=== PATIENT | female | born 1960 | race Caucasian/White ===

== ENCOUNTER → 2020-03-31 10:05 | Outpatient (CLI) | payer BC, SELFPAY ==
--- NOTE | ~2020-03-31 | DEXA_ITS ---
Bone Density Report Name: Sherri Mcnulty Age: 59 Sex: Female Ethnicity: White Date of : 1960 Indication: osteopenia; hysterectomy; postmenopausal Referring Provider: ALEJANDRO BARNES Study: Bone densitometry was performed. Exam Date: March 31, 2020 Accession number: [id number] Bone Density: Region BMD T-score Z-score Classification AP Spine (L1-L4) 1.056 0.1 1.5 Normal Femoral Neck (Left) 0.803 -0.4 0.9 Normal Total Hip (Left) 1.026 0.7 1.6 Normal Femoral Neck (Right) 0.762 -0.8 0.5 Normal Total Hip (Right) 0.987 0.4 1.3 Normal Total Hip Mean 1.007 0.6 1.5 Normal World Health Organization criteria for BMD impression classify patients as: Normal (T-score at or above -1.0), Osteopenia (T-score between -1.0 and -2.5), or Osteoporosis (T-score at or below -2.5). 10-year Fracture Risk: FRAX not reported because: All T-scores for Spine Total, Hip Total, Femoral Neck at or above -1.0 Previous Exams: Region Exam Age BMD T-score BMD Change BMD Change Date g/cm2 vs Baseline vs Previous AP Spine(L1-L4) 03/31/2020 59 1.056 0.1 -0.031 0.062* 01/18/2017 56 0.993 -0.5 -0.093 -0.032* 05/09/2013 53 1.026 -0.2 -0.061 0.058* 07/15/2009 49 0.968 -0.7 -0.119 -0.119 12/29/2003 43 1.087 0.4 Total Hip(Left) 03/31/2020 59 1.026 0.7 0.043 0.125* 01/18/2017 56 0.901 -0.3 -0.082 -0.043* 05/09/2013 53 0.944 0.0 -0.038 0.041* 07/15/2009 49 0.903 -0.3 -0.080 -0.080 12/29/2003 43 0.982 0.3 Total Hip(Right) 03/31/2020 59 0.987 0.4 0.005 0.175* 01/18/2017 56 0.811 -1.1 -0.170 -0.122* 05/09/2013 53 0.934 -0.1 -0.048 0.090* 07/15/2009 49 0.844 -0.8 -0.138 -0.138 12/29/2003 43 0.981 0.3 *Denotes significance at 95% confidence level, LSC for AP Spine = 0.022 g/cm2, LSC for Total Hip = 0.027 g/cm2 Clinical Information Provided by Patient: Has used the following medications: HRT (i.e. estrogen/hormone therapy), Vitamin D, Calcium Has the following medical conditions: Hysterectomy Patient maximum height was 65.5 Menopause Age: 42 No regular weight bearing exercise Drinks caffeinated beverages Onset of menses at age 14 Number of children 2 Impression: The patient has n
--- NOTE | ~2020-03-31 | MM_ITS ---
EXAMINATION: MM screening sonia BI w jasson HISTORY: Screening mammogram TECHNIQUE: Craniocaudal and mediolateral oblique 3-D tomosynthesis images were obtained and synthetic 2-D images were generated. CAD analysis was submitted and interpreted. COMPARISON: 01/18/2017, 11/27/2015, 07/03/2014, 05/09/2013 bilateral digital screening mammogram examina tions BREAST PARENCHYMAL COMPOSITION: The breasts are heterogeneously dense, which may obscure small masses . FINDINGS: There is no evidence of suspicious mass, calcification, or architectural distortion to sugg est malignancy in either breast. There has been no suspicious interval change. IMPRESSION: 1. No mammographic evidence of malignancy. 2. Recommend routine screening mammography in one year. BI-RADS Category 1: Negative Reviewed, dictated and finalized at location A. OPERATOR
== END ==
PROVIDERS: PCP Family Medicine Adolescent Medicine; Referring Provider Obstetrics & Gynecology; Visit Provider Obstetrics & Gynecology Gynecology
DX: Z12.31 Encounter for screening mammogram for malignant neoplasm of breast (principal); Z78.0 Asymptomatic menopausal state
CPT/HCPCS: 77063; 77067; 77080

== ENCOUNTER → 2021-07-08 14:42 | Outpatient (CLI) | payer BC, SELFPAY ==
--- NOTE | ~2021-07-08 | XR_ITS ---
EXAMINATION: XR finger 5th RT min 2V DATE: 07/08/2021 15:01 INDICATION: Right hand fifth digit injury. TECHNIQUE: 4 views of right hand fifth digit were obtained. COMPARISON: None. FINDINGS: Bone alignment is normal. 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 There is lucency at the base of a large osteophyte at the dorsal base of the fifth distal phalanx. IMPRESSION: 1. Lucency at the base of a large osteophyte at the dorsal base of the fifth distal phalanx, which is indeterminate for a fracture. Reviewed, dictated and finalized at location A. IMPRESSION: 1. Lucency at the base of a large osteophyte at the dorsal base of the fifth di stal phalanx, which is indeterminate for a fracture.
== END ==
PROVIDERS: PCP Family Medicine Adolescent Medicine; Visit Provider Family Medicine Adolescent Medicine
DX: S67.196A Crushing injury of right little finger, initial encounter (principal); X58.XXXA Exposure to other specified factors, initial encounter
CPT/HCPCS: 73140

== ENCOUNTER → 2021-09-28 15:16 | Outpatient (CLI) | payer BC, SELFPAY ==
--- NOTE | ~2021-09-28 | MM_ITS ---
EXAMINATION: MM screening sonia BI w jasson HISTORY: Screening mammogram TECHNIQUE: Craniocaudal and mediolateral oblique 3-D tomosynthesis images were obtained and synthetic 2-D images were generated. CAD analysis was submitted and interpreted. COMPARISON: 03/31/2020, 01/18/2017, 11/27/2015 bilateral screening mammogram examinations BREAST PARENCHYMAL COMPOSITION: The breasts are heterogeneously dense, which may obscure small masses . FINDINGS: There is no evidence of suspicious mass, calcification, or architectural distortion to sugg est malignancy in either breast. There has been no suspicious interval change. IMPRESSION: 1. No mammographic evidence of malignancy. 2. Recommend routine screening mammography in one year. BI-RADS Category 1: Negative Reviewed, dictated and finalized at location A.
== END ==
PROVIDERS: PCP Family Medicine Adolescent Medicine; Visit Provider Obstetrics & Gynecology Gynecology
DX: Z12.31 Encounter for screening mammogram for malignant neoplasm of breast (principal)
CPT/HCPCS: 77063; 77067

== ENCOUNTER 2021-10-26 00:09 | Day surgery (SDC) | payer BC, SELFPAY ==
[2021-10-07 15:07] VITALS: BMI 26.7
[2021-10-26 07:57] VITALS: BP 116/70; PULSE 77; RESP 16; TEMP 36.5; O2SAT 100
[2021-10-26] MEDS: LACTATED RINGERS 1,000 ML 150 ML IV CONT (08:05)
--- NOTE | 2021-10-26 08:30 | PM.IMHP ---
H&P: HPI History of Present Illness Date/Time: 10/26/21 08:30 Chief Complaint: History of colon polyps. Narrative: This is a 61-year-old white female patient presents for surveillance colonoscopy. Patient has a history of colon polyps performed by Dr. Nas Glover in 2017. At that time 2 sessile hyperplastic polyps were removed with snare cautery. One which had bleeding required clipping. Patient presents today for follow-up examination. She states her weight appetite her bowel movements are normal. In preparation for colonoscopy she reports brief episode of anal prolapse. She has never had this occur previously. She denies any bleeding. Has no pain. She states the prolapse promptly resolved. Review of Systems Review of Systems: Review of systems is noncontributory. [facility] Past Medical History Medical History Abnormal colonoscopy 11/24, polyps Repeat 11/29 Surgical History Surgical History H/O hysterectomy with oophorectomy 1999 Family History Family History Father Hypertension Heart disease CHF Mother Cerebrovascular accident Sibling Ovarian cancer Sibling Acute myocardial infarction Social History Social History Social History: never smoker Smoking status: Never smoker Second hand tobacco smoke exposure: No Alcohol intake: current Alcohol use details: Socially Substance use: never Substance use type: does not use Living arrangements: with family Gender identity (if verbalized by the patient): Female Sexual Orientation (if Verbalized by the Patient): Straight or Heterosexual Spiritual care concerns: No Agree to blood products: Yes Meds Home Medications and Allergies Home Medications Medication Instructions Recorded Confirmed Type aspirin 81 mg tablet,delayed 81 mg PO DAILY 07/14/20 10/26/21 History release (Adult Low Dose Aspirin) calcium carbonate 600 mg calcium 600 mg PO DAILY 07/14/20 10/26/21 History (1,500 mg) tablet (Calcium) cetirizine 10 mg tablet 10 mg PO DAILY 07/14/20 10/26/21 History cyclosporine 0.05 % eye drops in a 1 drp EACH EYE Q12H 07/14/20 10/26/21 History dropperette (Restasis) ergocalciferol (vitamin D2) 1,250 1,250 mcg PO WEEKLY 07/14/20 10/26/21 History mcg (50,000 unit) capsule fluticasone propionate 50 1 spray intranasal DAILY 07/14/20 10/26/21 History mcg/actuation nasal spray,suspension (Allergy Relief (fluticasone)) biotin 10,000 mcg capsule 10,000 mcg PO DAILY 07/08/21 10/26/21 History potassium chloride 20 mEq See Rx Instructions .Route 07/09/21 10/26/21 Rx tablet,extended release .COMPLEX #90 tabs diclofenac sodium 75 mg 75 mg PO BID #180 tabs 08/05/21 10/26/21 Rx tablet,delayed release topiramate 50 mg tablet See Rx Instructions .Route 09/07/21 10/26/21 Rx .COMPLEX #180 tabs omeprazole 20 mg capsule,delayed See Rx Instructions .Route 09/08/21 10/26/21 Rx release .COMPLEX #90 caps furosemide 40 mg tablet 40 mg PO QAM #90 tabs 09/13/21 10/26/21 Rx sertraline 50 mg tablet 50 mg PO DAILY #90 tabs 09/13/21 10/26/21 Rx sodium sul 1.479 gram-potas ch See Rx Instructions PO PER PKG DIR 09/22/21 10/26/21 Rx 0.188 gram-magnes sul 0.225 gram #24 tabs tablet (Sutab) atorvastatin 40 mg tablet 40 mg PO DAILY #90 tabs 10/25/21 10/26/21 Rx eletriptan 40 mg tablet (Relpax) 40 mg PO ONCE #9 tabs 10/25/21 10/26/21 Rx Allergies Allergy/AdvReac Type Severity Reaction Status Date / Time adhesive tape Allergy Mild RASH Verified 10/26/21 07:56 levofloxacin AdvReac Mild Nausea Verified 10/26/21 07:56 Sulfa (Sulfonamide AdvReac Mild Nausea and Verified 10/26/21 07:56 Antibiotics) Vomiting Vital Signs Vital Signs - 24 hr 10/26/21 07:57 Temperature 97.7 F Pulse Rate
--- NOTE | 2021-10-26 08:42 | WPDANESEPPF ---
Anes - Initial Pre Proc Eval Procedure: Operation Date: 10/26/21 09:00 Proposed Procedures p Screening Colonoscopy - Nas Beltre MD Date/Time: 10/26/21 08:42 Surgeon: Nas Beltre MD Pre Op Diagnosis: neoplasm screen, hx colon polyps Patient Data Age: 61 Gender: F Height: 1.65 m Weight: 71.7 kg Last Vital Signs Temp 97.7 F 10/26/21 07:57 Pulse 77 10/26/21 07:57 Resp 16 10/26/21 07:57 BP 116/70 10/26/21 07:57 Pulse Ox 100 10/26/21 07:57 O2 Del Method Room Air 10/26/21 07:57 Allergies Allergy/AdvReac Type Severity Reaction Status Date / Time adhesive tape Allergy Mild RASH Verified 10/26/21 07:56 levofloxacin AdvReac Mild Nausea Verified 10/26/21 07:56 Sulfa (Sulfonamide AdvReac Mild Nausea and Verified 10/26/21 07:56 Antibiotics) Vomiting Home Medications Medication Instructions Recorded Confirmed Type aspirin 81 mg tablet,delayed 81 mg PO DAILY 07/14/20 10/26/21 History release (Adult Low Dose Aspirin) calcium carbonate 600 mg calcium 600 mg PO DAILY 07/14/20 10/26/21 History (1,500 mg) tablet (Calcium) cetirizine 10 mg tablet 10 mg PO DAILY 07/14/20 10/26/21 History cyclosporine 0.05 % eye drops in a 1 drp EACH EYE Q12H 07/14/20 10/26/21 History dropperette (Restasis) ergocalciferol (vitamin D2) 1,250 1,250 mcg PO WEEKLY 07/14/20 10/26/21 History mcg (50,000 unit) capsule fluticasone propionate 50 1 spray intranasal DAILY 07/14/20 10/26/21 History mcg/actuation nasal spray,suspension (Allergy Relief (fluticasone)) biotin 10,000 mcg capsule 10,000 mcg PO DAILY 07/08/21 10/26/21 History potassium chloride 20 mEq See Rx Instructions .Route 07/09/21 10/26/21 Rx tablet,extended release .COMPLEX #90 tabs diclofenac sodium 75 mg 75 mg PO BID #180 tabs 08/05/21 10/26/21 Rx tablet,delayed release topiramate 50 mg tablet See Rx Instructions .Route 09/07/21 10/26/21 Rx .COMPLEX #180 tabs omeprazole 20 mg capsule,delayed See Rx Instructions .Route 09/08/21 10/26/21 Rx release .COMPLEX #90 caps furosemide 40 mg tablet 40 mg PO QAM #90 tabs 09/13/21 10/26/21 Rx sertraline 50 mg tablet 50 mg PO DAILY #90 tabs 09/13/21 10/26/21 Rx sodium sul 1.479 gram-potas ch See Rx Instructions PO PER PKG DIR 09/22/21 10/26/21 Rx 0.188 gram-magnes sul 0.225 gram #24 tabs tablet (Sutab) atorvastatin 40 mg tablet 40 mg PO DAILY #90 tabs 10/25/21 10/26/21 Rx eletriptan 40 mg tablet (Relpax) 40 mg PO ONCE #9 tabs 10/25/21 10/26/21 Rx Patient hx anesthesia problems: none Family hx anesthesia problems: none Results Review: All pre-operative results and documents have been reviewed as part of the pre-operative evaluation. [facility] Past Medical History Medical History Abnormal colonoscopy 11/24, polyps Repeat 11/29 Surgical History Surgical History H/O hysterectomy with oophorectomy 1999 Family History Family History Father Hypertension Heart disease CHF Mother Cerebrovascular accident Sibling Ovarian cancer Sibling Acute myocardial infarction Social History Social History Social History: never smoker Smoking status: Never smoker Second hand tobacco smoke exposure: No Alcohol intake: current Alcohol use details: Socially Substance use: never Substance use type: does not use Living arrangements: with family Gender identity (if verbalized by the patient): Female Sexual Orientation (if Verbalized by the Patient): Straight or Heterosexual Spiritual care concerns: No Agree to blood products: Yes Anes - Eval Final PreProcedure Day of Procedure 10/26/21 08:42 Patient weight: normal Heart: regular rate and rhythm Lungs: clear to auscultation Airway: Mallampati scale class II Neur
[2021-10-26 09:21] VITALS: BP 102/57; PULSE 70; RESP 15; O2SAT 97
[2021-10-26 09:31] VITALS: BP 122/44; PULSE 66; RESP 30; O2SAT 100
[2021-10-26 09:41] VITALS: BP 135/84; PULSE 57; RESP 18; O2SAT 100
== END 2021-10-26 09:55 | disposition home or self-care (01) ==
PROVIDERS: PCP Family Medicine Adolescent Medicine; Visit Provider Internal Medicine Gastroenterology
PROC: 0DJD8ZZ Inspection of Lower Intestinal Tract, Via Natural or Artificial Opening Endoscopic (ICD-10-PCS; CPT 45378; principal; 2021-10-26 09:00)
DX: Z12.11 Encounter for screening for malignant neoplasm of colon (principal); K62.2 Anal prolapse; K57.30 Diverticulosis of large intestine without perforation or abscess without bleeding; K62.89 Other specified diseases of anus and rectum; Z79.82 Long term (current) use of aspirin
CPT/HCPCS: 45380; 88305; J2704; J7120

== ENCOUNTER 2022-07-27 19:16 | Emergency (ER) | payer BC, SELFPAY ==
--- NOTE | ~2022-07-27 | XR_ITS ---
XR knee RT 3V 07/27/2022 20:10 INDICATION: Right knee pain PROCEDURE: 3 views right knee COMPARISON: No prior studies for comparison. FINDINGS: Fracture, dislocation or subluxation is not identified. There is mild patellofemoral compar tment osteoarthritis. No significant joint effusion. The soft tissues appear within normal limits. N o foreign bodies are identified. IMPRESSION: 1: NO ACUTE BONE OR JOINT ABNORMALITY IDENTIFIED. Reviewed, dictated and finalized at location A.
[2022-07-27 19:18] VITALS: BP 150/71; PULSE 74; RESP 16; TEMP 36.6; O2SAT 100
[2022-07-27] MEDS: HYDROcodone/acetaminophen (*CRX) 5-325 MG TABLET 1 TAB PO (19:55)
--- NOTE | 2022-07-27 20:08 | ED.GENADULT ---
HPI - General Adult General Chief complaint: Extremity Injury, Lower Stated complaint: right knee pain Time Seen by Provider: 07/27/22 19:21 History of Present Illness HPI narrative: this 62-year-old female presenting ED with chief complaint of knee pain. Patient says she has been having a throbbing pain behind her knee for several weeks. It has been intermittent until yesterday when it became constant. It is 8 out 10 in intensity. It is worse with walking and there are no alleviating factors. Patient then drove 18 hours home from [place]. She notes that she has some swelling of her ankles although she is on a diuretic for lower extremity edema. Patient denies risk factors for or history of DVT. No traumatic event. 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 Related Data Home Medications Medication Instructions Recorded Confirmed aspirin 81 mg tablet,delayed 81 mg PO DAILY 07/14/20 10/26/21 release (Adult Low Dose Aspirin) calcium carbonate 600 mg calcium 600 mg PO DAILY 07/14/20 10/26/21 (1,500 mg) tablet (Calcium) cetirizine 10 mg tablet 10 mg PO DAILY 07/14/20 10/26/21 cyclosporine 0.05 % eye drops in a 1 drp EACH EYE Q12H 07/14/20 10/26/21 dropperette (Restasis) ergocalciferol (vitamin D2) 1,250 1,250 mcg PO WEEKLY 07/14/20 10/26/21 mcg (50,000 unit) capsule fluticasone propionate 50 1 spray intranasal DAILY 07/14/20 10/26/21 mcg/actuation nasal spray,suspension (Allergy Relief (fluticasone)) biotin 10,000 mcg capsule 10,000 mcg PO DAILY 07/08/21 10/26/21 Allergies Allergy/AdvReac Type Severity Reaction Status Date / Time adhesive tape Allergy Mild RASH Verified 07/27/22 19:45 levofloxacin AdvReac Mild Nausea Verified 07/27/22 19:45 Sulfa (Sulfonamide AdvReac Mild Nausea and Verified 07/27/22 19:45 Antibiotics) Vomiting PMFSH Past Medical History Medical History Abnormal colonoscopy 11/24, polyps Repeat 11/29 Surgical History Surgical History H/O hysterectomy with oophorectomy 1999 Family History Family History Father Hypertension Heart disease CHF Mother Cerebrovascular accident Sibling Ovarian cancer Sibling Acute myocardial infarction Social History Social History Social History: never smoker Smoking status: Never smoker Second hand tobacco smoke exposure: No Alcohol intake: current Alcohol use details: Socially Substance use: never Substance use type: does not use Living arrangements: with family Occupation/Education: occupation Gender identity (if verbalized by the patient): Female Sexual Orientation (if Verbalized by the Patient): Straight or Heterosexual Spiritual care concerns: No Agree to blood products: Yes Exam Narrative: APPEARANCE: No apparent distress. Head: atraumatic. EYES: EOMI, NOSE: Atraumatic NECK: Trachea midline RESPIRATORY: No increased rate of breathing CARDIOVASCULAR: RRR, ABDOMINAL: Non-distended MUSCULOSKELETAl: Focal exam of the right lower extremity revealed no swelling or warmth to the knee. There is no obvious edema. Patient has tenderness by the knee and a questionable mass. NEURO: Alert. Moving 4/4 extremities SKIN:: Warm, dry. Normal color PSYCHIATRIC: Normal affect Course Vital Signs Vital signs: Vital Signs Temperature 98 F 07/27/22 19:18 Pulse Rate 74 07/27/22 19:18 Respiratory Rate 16 07/27/22 19:18 Blood Pressure 150/71 H 07/27/22 19:18 Pulse Oximetry 100 07/27/22 19:18 Oxygen Delivery Room Air 07/27/22 19:18 Temperature 98 F 07/27/22 19:18 Pulse Rate 74 07/27/22 19:18 Respiratory Rate 16 07/27/22 19:18 Blood Pressure 150/71 H 07/27/22 19:18 Pulse Oximetry 100
[2022-07-27] MEDS: KETOROLAC 15 MG/ML VIAL (*BKC) IV PUSH (20:35)
[2022-07-27 20:38] LABS: Basophils Percent Auto 0.6 % (0.2-1.2); Eosinophils Absolute Auto 0.2 K/mm3 (0-0.3); Eosinophils Percent Auto 3.2 % (0-4.4); Hematocrit 39.5 % (37.0-47.0); Immature Granulocyte Absolute 0.02 K/mm3 (0.00-0.031); Immature Granulocyte Percent A 0.3 % (0-0.5); Lymphocytes Absolute Auto 2.52 K/mm3 (0.9-3.2); Lymphocytes Percent Auto 36.3 % (18.3-44.2); Mean Corpuscular HGB Conc 32.9 g/dl (32-36); Mean Corpuscular Hemoglobin 29.7 pg (26-34); Mean Corpuscular Volume 90.2 fl (80-100); Mean Platelet Volume 9.9 fl (7.4-10.4); Monocytes Absolute Auto 0.5 K/mm3 (0.1-0.6); Monocytes Percent Auto 7.8 % (2.6-8.5); Neutrophils Absolute Auto 3.6 K/mm3 (1.3-6.7); Neutrophils Percent Auto 51.8 % (45.5-73.1); Platelet Count Result 235 k/mm3 (150-375); Red Blood Count 4.38 M/mm3 (4.2-5.4); White Blood Count 6.9 K/mm3 (4.5-10.0)
[2022-07-27 20:47] LABS: Anion Gap 7 mmol/L (8-16); Blood Urea Nitrogen 20 mg/dL (7-17); Carbon Dioxide 24 mmol/L (22-30); Chloride 106 mmol/L (98-107); Estimated CRCL calculation 57 ml/min; Estimated Glomerular Filt Rate > 60; Glucose 98 mg/dL (65-110); Potassium 3.5 mmol/L (3.4-5.0); Sodium 137 mmol/L (137-145)
[2022-07-27 20:48] LABS: Prothrombin Time 13.1 Seconds (11.1-14.7)
[2022-07-27] MEDS: ENOXAPARIN 80 MG/0.8 ML SYRINGE 75 MG SUB-Q (21:30)
== END 2022-07-27 23:08 | disposition home or self-care (01) ==
PROVIDERS: Emergency Provider Emergency Medicine; PCP Family Medicine Adolescent Medicine
DX: M25.561 Pain in right knee (principal); R60.0 Localized edema; Z79.82 Long term (current) use of aspirin; Z90.710 Acquired absence of both cervix and uterus
CPT/HCPCS: 36415; 73562; 80048; 85025; 85610; 85730; 96372; 96374; 99284; A9270; J1650; J1885

== ENCOUNTER 2022-07-28 07:02 | Outpatient (CLI) | payer BC, SELFPAY ==
--- NOTE | ~2022-07-28 | US_ITS ---
US venous doppler [facility] DATE: 07/28/2022 08:06 INDICATION: Lower extremity injury, pain TECHNIQUE: Real-time and color flow imaging and Doppler analysis of the veins of the lower extremitie s COMPARISON: None FINDINGS: The greater saphenous veins are patent. There is spontaneous and phasic flow and normal aug mentation and color flow signal and normal compression of the deep veins of both lower extremities. IMPRESSION: No evidence of deep venous thrombosis of the lower extremities Reviewed, dictated and finalized at Location A. Reviewed, dictated and finalized at location L.
== END 2022-07-28 07:03 | disposition home or self-care (01) ==
PROVIDERS: PCP Family Medicine Adolescent Medicine; Visit Provider Emergency Medicine
DX: M25.561 Pain in right knee (principal)
CPT/HCPCS: 93970

== ENCOUNTER 2022-08-10 19:20 | Emergency (ER) | payer BC, SELFPAY ==
[2022-08-10] VITALS (7 sets, daily range): BP systolic 128–138; BP diastolic 74–82; PULSE 74–78; RESP 16–18; TEMP 36.9; O2SAT 96–100
--- NOTE | ~2022-08-10 | XR_ITS ---
EXAMINATION: XR chest 1V portable Exam Date/Time: 08/10/2022 20:40 CDT HISTORY: dizziness WITH COUGH X 3 DAYS Comparison: 01/16/2019. RESULT: Lines, tubes, and devices: None. Lungs and pleura: Clear. Multiple calcified granulomas. Cardiomediastinal silhouette: Stable. Other: No acute osseous or upper abdominal finding. IMPRESSION: No acute cardiopulmonary process. Reviewed, dictated and finalized at location K.
[2022-08-10] MEDS: SODIUM CHLORIDE 0.9% IV 2,500 ML 999 ML IV CONT (20:22)
[2022-08-10] MEDS: PROCHLORPERAZINE EDISYLATE 10 MG/2 ML VIAL IV PUSH (20:26)
[2022-08-10] MEDS: ACETAMINOPHEN 500 MG TABLET 1000 MG PO (20:26)
[2022-08-10] MEDS: diphenhydrAMINE HCl INJ 50 MG/ML VIAL 25 MG IV PUSH (20:27)
[2022-08-10 20:29] LABS: Basophils Percent Auto 0.5 % (0.2-1.2); Hematocrit 39.3 % (37.0-47.0); Hemoglobin 13.1 g/dL (12.0-15.0); Immature Granulocyte Absolute 0.01 K/mm3 (0.00-0.031); Immature Granulocyte Percent A 0.2 % (0-0.5); Lymphocytes Absolute Auto 0.69 K/mm3 (0.9-3.2); Mean Corpuscular HGB Conc 33.3 g/dl (32-36); Mean Corpuscular Hemoglobin 29.4 pg (26-34); Mean Corpuscular Volume 88.3 fl (80-100); Mean Platelet Volume 9.5 fl (7.4-10.4); Monocytes Absolute Auto 0.4 K/mm3 (0.1-0.6); Monocytes Percent Auto 9.5 % (2.6-8.5); Neutrophils Absolute Auto 3.2 K/mm3 (1.3-6.7); Neutrophils Percent Auto 73.8 % (45.5-73.1); Platelet Count Result 183 k/mm3 (150-375); Red Blood Count 4.45 M/mm3 (4.2-5.4); Red Cell Distribution Width 13.7 % (11.5-14.5); White Blood Count 4.3 K/mm3 (4.5-10.0)
[2022-08-10] MEDS: ONDANSETRON INJ 4 MG/2 ML VIAL 8 MG IV PUSH (20:29)
[2022-08-10 20:39] LABS: Alanine Aminotransferase 40 U/L (6-35); Albumin Level 4.2 g/dL (3.5-5.1); Alkaline Phosphatase 84 U/L (38-126); Anion Gap 9 mmol/L (8-16); Aspartate Amino Transferase 32 U/L (14-36); Bilirubin,Total 0.5 mg/dL (0.2-1.3); Blood Urea Nitrogen 16 mg/dL (7-17); Calcium 8.7 mg/dL (8.4-10.2); Carbon Dioxide 23 mmol/L (22-30); Chloride 104 mmol/L (98-107); Estimated CRCL calculation 59 ml/min; Estimated Glomerular Filt Rate > 60; Glucose 116 mg/dL (65-110); Lipase 112 U/L (23-300); Phosphorus 3.3 mg/dL (2.5-4.5); Potassium 3.5 mmol/L (3.4-5.0); Sodium 136 mmol/L (137-145)
[2022-08-10 20:40] LABS: Lactic Acid Reflex 1.1 mmol/L (0.7-2.0)
[2022-08-10 21:05] LABS: Influenza A QL RT-PCR Positive (Negative); Influenza B QL RT-PCR Negative (Negative); RSV RNA, RT-PCR Negative (Negative); SARS-CoV-2 RNA PCR Negative (Negative)
[2022-08-10 21:40] LABS: Appearance Urine Cloudy (Clear); Bacteria Urine None Seen /hpf; Bilirubin Urine Negative (Negative); Blood Urine Negative (Negative); Color Urine Yellow (Yellow); Glucose Urine UA Negative (Negative); Ketones Urine Negative (Negative); Leukocyte Esterase Ur Negative LEU/UL (Negative); Nitrate Urine Negative (Negative); Non Pathogenic Casts 0-2; Protein Urine Negative (Negative); RBC Urine 0-2 /hpf (0-2); Specific Grav Ur 1.007 (1.001-1.035); Squamous Epithelial Cell Urine None seen /hpf (Few); Urobilinogen Urine 0.2 mg/dL (<2.0); WBC Urine 0-5 /hpf; pH Urine 7.5 (5.0-9.0)
[2022-08-10 21:43] LABS: Add Urine Microscopic? NO
--- NOTE | 2022-08-10 22:27 | ED.GENADULT ---
HPI - General Adult General Chief complaint: Nausea/Vomiting/Diarrhea Stated complaint: n/v Time Seen by Provider: 08/10/22 19:37 History of Present Illness HPI narrative: This is a pleasant 62-year-old female presenting to the ED with 2 days of a head cold and nausea and vomiting. Patient says that her sinuses have been acting up. She has a frontal headache with sinus drainage. Headache is worse when she leans forward. Today around 6:00 p.m. she started developed nausea and vomiting when she moves her head. She does not have vertiginous symptoms. She denies sore throat, chest pain, difficulty breathing abdominal pain or urinary symptoms. Patient has a history of severe hypokalemia in the past and was concerned that her like tries may be off. Related Data Home Medications Medication Instructions Recorded Confirmed aspirin 81 mg tablet,delayed 81 mg PO DAILY 07/14/20 08/02/22 release (Adult Low Dose Aspirin) calcium carbonate 600 mg calcium 600 mg PO DAILY 07/14/20 08/02/22 (1,500 mg) tablet (Calcium) cetirizine 10 mg tablet 10 mg PO DAILY 07/14/20 08/02/22 cyclosporine 0.05 % eye drops in a 1 drp EACH EYE Q12H 07/14/20 08/02/22 dropperette (Restasis) ergocalciferol (vitamin D2) 1,250 1,250 mcg PO WEEKLY 07/14/20 08/02/22 mcg (50,000 unit) capsule fluticasone propionate 50 1 spray intranasal DAILY 07/14/20 08/02/22 mcg/actuation nasal spray,suspension (Allergy Relief (fluticasone)) biotin 10,000 mcg capsule 10,000 mcg PO DAILY 07/08/21 08/02/22 potassium chloride 20 mEq oral 20 meq PO DAILY 08/02/22 08/02/22 packet (Klor-Con) Allergies Allergy/AdvReac Type Severity Reaction Status Date / Time adhesive tape Allergy Mild RASH Verified 08/10/22 19:31 levofloxacin AdvReac Mild Nausea Verified 08/10/22 19:31 Sulfa (Sulfonamide AdvReac Mild Nausea and Verified 08/10/22 19:31 Antibiotics) Vomiting PMFSH Past Medical History Medical History Abnormal colonoscopy 11/24, polyps Repeat 11/29 Allergies Anxiety Headache Surgical History Surgical History H/O hysterectomy with oophorectomy 1999 Family History Family History Father Hypertension Heart disease CHF Alcoholism Mother Cerebrovascular accident Heart disease Sibling Ovarian cancer Alcoholism Cancer Hypertension Heart disease Cerebrovascular accident Thyroid disorder Malignant neoplasm of prostate Sibling Acute myocardial infarction Grandparent Alcoholism Hypertension Heart disease Other Alcoholism Cancer Hypertension Heart disease Cerebrovascular accident Social History Social History Social History: never smoker Smoking status: Never smoker Second hand tobacco smoke exposure: No Alcohol intake: never Substance use: never Substance use type: does not use Living arrangements: with family Occupation/Education: retired Gender identity (if verbalized by the patient): Female Sexual Orientation (if Verbalized by the Patient): Straight or Heterosexual Spiritual care concerns: No Agree to blood products: Yes Exam Narrative: APPEARANCE: No apparent distress. pleasant polite Head: increased headache with pressure over the frontal sinuses EYES: EOMI, NOSE: Atraumatic NECK: Trachea midline RESPIRATORY: No increased rate of breathing, clear to auscultation CARDIOVASCULAR: RRR, ABDOMINAL: Non-distended MUSCULOSKELETAl: No obvious deformities NEURO: Alert. Cranial nerves 2-12 grossly intact. Sensation light touch, motor function cerebellar function intact for 4 extremities. Gait exam was normal. SKIN:: Warm, dry. Normal color PSYCHIATRIC: Normal affect Course Vital Signs Vital signs: Vital Signs Temperature 98.4 F 08/10/22 19:21 Puls
== END 2022-08-10 23:27 | disposition home or self-care (01) ==
PROVIDERS: Emergency Provider Emergency Medicine; PCP Family Medicine Adolescent Medicine
DX: J11.89 Influenza due to unidentified influenza virus with other manifestations (principal); J32.9 Chronic sinusitis, unspecified; R51.9 Headache, unspecified; R11.2 Nausea with vomiting, unspecified; Z20.822 Contact with and (suspected) exposure to COVID-19; Z79.82 Long term (current) use of aspirin; Z90.710 Acquired absence of both cervix and uterus
CPT/HCPCS: 36415; 71045; 80053; 81003; 83605; 83690; 83735; 84100; 85025; 87637; 96361; 96374; 96375; 99284; A9270; J0780; J1200; J2405; J7030

== ENCOUNTER 2022-09-01 10:00 | Outpatient (RCR) | payer BC, SELFPAY ==
--- NOTE | 2022-08-05 08:58 | PTOPEVAL1 ---
Assessment and note entered by Janae Lizarraga, PT Evaluation Information Assessment Status Evaluation Diagnosis lumbar pain, R knee pain Onset July 23, 2022 Subjective Information increase pain after return from [place]-- long car ride; to ER 07-27-22 due to increase knee pain; xray R knee Mild patella femoral OA; ultrasound negative for DVT; used crutches for few days due to not being able to WB on R leg; saw her general dr, then ortho dr; she reports chronic issues with R knee-- R leg swelling and knee pain; not really had any specific back pain, but issues with neck and spine pain-- tight down spine; Reported Pain Level Pain Score Self Report Additional Pain Score Comments pain range of 0-10/10 in past week: R knee, R leg and back pain; R calf charley horse- behind knee and into calf; to ER due to pain; increase pain with standing and WB on R leg, used crutches; activity level about 1 hour with home tasks. decreased pain sit rest; is not taking any pain meds for the past 4 days; initially had issues with sleeping due to knee pain and have restless legs with sleeping; have not used heat/ice--instructed on PRN use over back and knee; Assessment PT Clinical Summary Sherri has the diagnosis of lumbar and R knee pain. She has a history of R knee pain and went to ER after long car ride, return home from [place]. Her history also includes neck pain with DDD and bulging discs. Xray of her knee reports mild patella femoral OA. She is retired and active, walks for exercises but does not do any other fitness activities. With the evaluation, she has tightness of R and L hamstrings and anterior hip/quad muscles; standing trunk flexion and rotation to R increase in back pain; there is popping and grinding with R knee active motions- with full ROM of knee; poor standing position with R trunk rotation posterior and decreased WB on R LE; weakness of trunk and hips. Skilled PT services are indicated for modalities to decrease pain in back and R knee, therapeutic exercises to stretch and strengthen trunk and hips, with education for home exercises and posture correction. Plan of Care Interventi
--- NOTE | 2022-09-01 10:44 | PTOPPROG ---
Assessment and note entered by Janae Lizarraga, PT Evaluation Information Assessment Status Progress Diagnosis lumbar pain, R knee pain Onset July 23, 2022 Subjective Information Sherri reports: continues to have knee pain, is not like her back pain/ usual sciatica pain; does not see Dr Garcia until September 28; is going to see her general dr- Dr Callahan this afternoon; using crutches all the time due to knee pain, not walking much; have been doing the exercises and understands she needs to keep moving her knee. feels like she needs an MRI to see what is going on with her knee; pain in R knee: range of the past week: 8-10/10; constant throb in knee; some sharp pain with taking a step on it; decreased walking, driving and activity due to knee pain decrease pain with ice and elevation with rest; increase pain with standing/walking and knee flexion have swelling in the knee as the day goes on-- over medial patella and medial tibial areas; wearing knee brace and tubigrip for swelling Assessment PT Clinical Summary Sherri has received 6 PT sessions. Compared to the initial evaluation: pain continues to be up to 10/10 at times; she reports at the initial eval she had said 0/10 at least rating, but was having ache and throb, did not rate that as pain pain increases with knee flexion and weight bearing in standing; continues to use crutches and decreased walking due to pain; strength of R LE has increased with mat exercises; flexibility of hamstring and anterior hip/quad length has improved bilateral; education has been for home exercises, gait pattern with crutches and use of knee brace. And using tubigrip for edema. Knee active ROM is 0-115'. The goals were partially met. She is following up with her general dr today. Plan to HOLD PT at this time. She is to continue with her HEP and progress activity as knee pain allows. She will call if additional therapy is needed in the next 30 days. Plan of Care Interventions Electrical Stimulation,Gait Training,Hot Pack/Cold Pack,Manual Therapy,Neuro Re-
--- NOTE | 2022-09-12 08:58 | PCPTNOTE ---
pt called, stated her MRI was done and she has a meniscal tear; she asked about her HEP; discussed and to continue with ice, HEP and elevation.
--- NOTE | 2022-10-13 14:49 | PTOPDC ---
Assessment and note entered by Janae Lizarraga, PT Evaluation Information Assessment Status Discharge - Pt Not Present Diagnosis lumbar pain, R knee pain Onset July 23, 2022 Assessment PT Clinical Summary Sherri has not returned for therapy since her reevaluation on 09-01-22. Therefore, she will be discharged at this time. Refer to that report for her status at the last session. Plan of Care PT Services Indicated No
== END 2022-10-14 14:11 | disposition home or self-care (01) ==
LOC: ANHPT 10:00
PROVIDERS: PCP Family Medicine Adolescent Medicine; Visit Provider Orthopaedic Surgery
DX: M25.561 Pain in right knee (principal); M79.604 Pain in right leg
CPT/HCPCS: 97014; 97110; 97140; 97162; G0283

== ENCOUNTER 2022-09-25 09:14 | Emergency (ER) | payer BC, SELFPAY ==
--- NOTE | 2022-09-25 09:25 | ED.EYEPROB ---
HPI - Eye Problem General Chief complaint: Eye Problems Stated complaint: EYE REDNESS/SWELLING Time Seen by Provider: 09/25/22 09:25 Source: patient, RN notes reviewed and old records reviewed Mode of arrival: ambulatory Limitations: no limitations History of Present Illness HPI Narrative: 62 years old who presents to [facility] with complaints of left eye redness with crusting noted in the mornings for the past 2 mornings. Patient has noted redness with some whitish looking discharge noted from her right eye. Patient denies any sharp pain to her left eye, reports some itching to eye with some blurring of vision. Patient does wear contacts and has not worn since Monday night when she took them out. Patient states that she has soft 30 day lens but takes out nightly and cleanses lens.Patient states she does have some old glasses at home of old prescription. MD chief complaint: eye redness Onset (ago): day(s) (2 of symptoms) Location: left eye Eye Symptoms: redness, itching, discharge and blurry vision Treatments Prior to Arrival: other (warm compresses to eye to remove matting) Related Data Home Medications Medication Instructions Recorded Confirmed aspirin 81 mg tablet,delayed 81 mg PO DAILY 07/14/20 09/25/22 release (Adult Low Dose Aspirin) calcium carbonate 600 mg calcium 600 mg PO DAILY 07/14/20 09/25/22 (1,500 mg) tablet (Calcium) cetirizine 10 mg tablet 10 mg PO DAILY 07/14/20 09/25/22 cyclosporine 0.05 % eye drops in a 1 drp EACH EYE Q12H 07/14/20 09/25/22 dropperette (Restasis) ergocalciferol (vitamin D2) 1,250 1,250 mcg PO WEEKLY 07/14/20 09/25/22 mcg (50,000 unit) capsule fluticasone propionate 50 1 spray intranasal DAILY 07/14/20 09/25/22 mcg/actuation nasal spray,suspension (Allergy Relief (fluticasone)) biotin 10,000 mcg capsule 10,000 mcg PO DAILY 07/08/21 09/25/22 potassium chloride 20 mEq oral 20 meq PO DAILY 08/02/22 09/25/22 packet (Klor-Con) Allergies Allergy/AdvReac Type Severity Reaction Status Date / Time adhesive tape Allergy Mild RASH Verified 09/25/22 09:20 levofloxacin AdvReac Mild Nausea Verified 09/25/22 09:20 Sulfa (Sulfonamide AdvReac Mild Nausea and Verified 09/25/22 09:20 Antibiotics) Vomiting Review of Systems Review of Systems: CONSTITUTIONAL: Denies fever, chills, or sweats. EYES: Denies any acute visual changes, states some blurring related to drainage, no sharp pain to left eye Reports redness,, irritation, discharge. ENT: Denies rhinorrhea, congestion, sore throat, or otalgia. CARDIOVASCULAR: Denies chest pain, palpitations, or edema. RESPIRATORY: Denies cough or dyspnea. SKIN: Denies rash or itching. NEUROLOGIC: Denies headache All systems reviewed & are unremarkable except as noted in HPI and below PMFSH Past Medical History Medical History Abnormal colonoscopy 11/24, polyps Repeat 11/29 Allergies Anxiety Headache Surgical History Surgical History H/O hysterectomy with oophorectomy 1999 Family History Family History Father Hypertension Heart disease CHF Alcoholism Mother Cerebrovascular accident Heart disease Sibling Ovarian cancer Alcoholism Cancer Hypertension Heart disease Cerebrovascular accident Thyroid disorder Malignant neoplasm of prostate Sibling Acute myocardial infarction Grandparent Alcoholism Hypertension Heart disease Other Alcoholism Cancer Hypertension Heart disease Cerebrovascular accident Social History Social History Social History: never smoker Smoking status: Never smoker Second hand tobacco smoke exposure: No Alcohol intake: current Alcohol use details: rarely Substance use: never Substance use type: does not use Lack of Transportation:
[2022-09-25 09:26] VITALS: BP 123/82; PULSE 67; RESP 16; TEMP 36.6; O2SAT 100
== END 2022-09-25 09:49 | disposition home or self-care (01) ==
PROVIDERS: Emergency Provider Registered Nurse; PCP Family Medicine Adolescent Medicine
DX: H10.32 Unspecified acute conjunctivitis, left eye (principal); Z79.82 Long term (current) use of aspirin; F41.9 Anxiety disorder, unspecified
CPT/HCPCS: 99213; G0463

== ENCOUNTER 2023-01-12 13:41 | Outpatient (CLI) | payer BC, SELFPAY ==
--- NOTE | ~2023-01-12 | US_ITS ---
EXAMINATION: US soft tissue chest DATE: 01/12/2023 14:25 INDICATION: Right supraclavicular swelling and pain. TECHNIQUE: Multiple grayscale and Doppler ultrasound images of the right supraclavicular region were obtained. COMPARISON: None FINDINGS: There is no abnormal mass or lymphadenopathy in the patient's area of concern in right supr aclavicular region. IMPRESSION: 1. No abnormal mass or lymphadenopathy in the patient's area of concern in right supraclavicular mj on. Reviewed, dictated and finalized at location E. IMPRESSION: 1. No abnormal mass or lymphadenopathy in the patient's area of concern in righ t supraclavicular region.
== END 2023-01-12 13:42 | disposition home or self-care (01) ==
PROVIDERS: PCP Family Medicine Adolescent Medicine; Visit Provider Nurse Practitioner Family
DX: R22.2 Localized swelling, mass and lump, trunk (principal)
CPT/HCPCS: 76604

== ENCOUNTER 2023-11-13 00:15 | Emergency (ER) | payer BC, SELFPAY ==
--- NOTE | ~2023-11-13 | CT_ITS ---
Clinical Indication: Shortness of breath CT Scan of the Chest with Contrast: Technique: Contiguous sections were acquired throughout the chest after intravenous administration of 100 cc of Omnipaque 350. Dose reduction technique was used on this scan by utilizing automated expos ure control and iterative reconstruction technique. The dose-length product (DLP) was 371.21 mGy-cm. Findings: There is no evidence of any significant mediastinal, hilar or axillary lymphadenopathy. There is no f illing defect in the pulmonary arterial tree to suggest pulmonary embolus. There is no evidence of ao rtic dissection or aneurysm. There is no evidence of pleural or pericardial effusion. There is mild biapical scarring. Several calcified pulmonary granulomas are noted. Images through the upper abdomen reveal no abnormalities. Impression: No evidence of pulmonary embolus, aortic dissection, or aortic aneurysm. No significant pulmonary abnormality. Reviewed, dictated and finalized at [facility]. Impression: No evidence of pulmonary embolus, aortic dissection, or aortic aneurysm. No significant pulmonary abnormality.
--- NOTE | ~2023-11-13 | XR_ITS ---
Portable chest x-ray Comparison: 08/10/2022 Clinical History: Chest pain Findings: Several small calcified granulomas are present. Lungs are otherwise clear, without focal co nsolidation or pleural effusion. Cardiomediastinal silhouette is stable. Bones and soft tissues are unremarkable. Impression: No acute abnormality. Reviewed, dictated and finalized at [facility] [place]. Impression: No acute abnormality.
--- NOTE | ~2023-11-13 | CT_ITS ---
Non-contrast Head CT History: Headache Technique: Axial non-contrast imaging of the brain was performed. Dose reduction technique was used on this scan by utilizing automated exposure control and iterative reconstruction technique. The dose -length product (DLP) was 681.00 mGy-cm. Findings: There is no evidence of intracranial hemorrhage, mass lesion, or acute infarct. Brain par enchyma appears normal. The ventricles and subarachnoid spaces are normal in size. The calvarium ap pears normal. Retention cyst or polyp present in the right maxillary sinus. The remaining visualized paranasal sinuses and mastoid air cells are clear. Impression: No significant abnormality seen. Reviewed, dictated and finalized at location . Impression: No significant abnormality seen.
--- NOTE | 2023-11-13 00:17 | ECG_ITS ---
Test Date: 2023-11-13 00:25:51 Measurements Intervals [place] Rate: 87 P: 48 MN: 125 QRS: -5 QRSD: 84 T: 49 QT: 359 QTc: 433 Interpretive Statements SINUS RHYTHM MINIMAL ST DEPRESSION [0.025+ mV ST DEPRESSION] BORDERLINE ECG No previous ECG available for comparison Electronically Signed On 11-13-2023 17:02:23 CDT by Rudolph Barber M.D.
[2023-11-13 00:23] VITALS: PULSE 86; RESP 23; TEMP 36.7; O2SAT 99
[2023-11-13 00:28] VITALS: PULSE 91; O2SAT 99
[2023-11-13 00:29] VITALS: BP 151/89
[2023-11-13 00:35] LABS: Basophils Absolute Auto 0.1 K/mm3 (0.0-0.1); Basophils Percent Auto 0.8 % (0.2-1.2); Eosinophils Absolute Auto 0.2 K/mm3 (0-0.3); Eosinophils Percent Auto 3.4 % (0-4.4); Hematocrit 45.3 % (37.0-47.0); Hemoglobin 15.1 g/dL (12.0-15.0); Immature Granulocyte Absolute 0.02 K/mm3 (0.00-0.031); Immature Granulocyte Percent A 0.3 % (0-0.5); Lymphocytes Absolute Auto 2.97 K/mm3 (0.9-3.2); Lymphocytes Percent Auto 41.8 % (18.3-44.2); Mean Corpuscular HGB Conc 33.3 g/dl (32-36); Mean Corpuscular Hemoglobin 28.5 pg (26-34); Mean Corpuscular Volume 85.6 fl (80-100); Mean Platelet Volume 9.7 fl (7.4-10.4); Monocytes Absolute Auto 0.5 K/mm3 (0.1-0.6); Monocytes Percent Auto 6.6 % (2.6-8.5); Neutrophils Absolute Auto 3.4 K/mm3 (1.3-6.7); Neutrophils Percent Auto 47.1 % (45.5-73.1); Platelet Count Result 266 k/mm3 (150-375); Red Blood Count 5.29 M/mm3 (4.2-5.4); Red Cell Distribution Width 14.4 % (11.5-14.5); White Blood Count 7.1 K/mm3 (4.5-10.0)
[2023-11-13 00:47] LABS: Alanine Aminotransferase 20 U/L (6-35); Alkaline Phosphatase 90 U/L (38-126); Anion Gap 12 mmol/L (4-12); Aspartate Amino Transferase 26 U/L (14-36); Bilirubin,Total 0.5 mg/dL (0.2-1.3); Blood Urea Nitrogen 20 mg/dL (7-17); Calcium 9.7 mg/dL (8.4-10.2); Carbon Dioxide 27 mmol/L (22-30); Chloride 102 mmol/L (98-107); Estimated CRCL calculation 73 ml/min; Estimated Glomerular Filt Rate > 60; Glucose 141 mg/dL (65-110); Lipase 276 U/L (23-300); Potassium 3.6 mmol/L (3.4-5.0); Sodium 141 mmol/L (137-145)
[2023-11-13 00:48] LABS: INR 0.8; Prothrombin Time 11.8 Seconds (11.1-14.7)
[2023-11-13 00:49] LABS: Partial Thromboplastin Time 24.1 Seconds (22.3-36.8)
[2023-11-13] MEDS: ASPIRIN 81 MG CHEWABLE TABLET 324 MG PO (00:52)
[2023-11-13] MEDS: diphenhydrAMINE HCl INJ 50 MG/ML VIAL IV PUSH (00:52)
[2023-11-13] MEDS: PROCHLORPERAZINE EDISYLATE 10 MG/2 ML VIAL IV PUSH (00:54)
[2023-11-13 00:59] LABS: Troponin I < 0.012 ng/mL (0.000-0.034)
--- NOTE | 2023-11-13 01:05 | ECG_ITS ---
Test Date: 2023-11-13 01:03:09 Measurements Intervals [place] Rate: 103 P: 44 AR: 130 QRS: -9 QRSD: 87 T: 27 QT: 359 QTc: 471 Interpretive Statements SINUS TACHYCARDIA WITH FREQUENT VENTRICULAR PREMATURE COMPLEXES MODERATE ST DEPRESSION [0.05+ mV ST DEPRESSION] ABNORMAL ECG Compared to ECG 11/13/2023 00:25:51 FREQUENT PVCS ARE NOW SEEN Electronically Signed On 11-13-2023 17:04:53 CDT by Rudolph Barber M.D.
[2023-11-13 01:32] LABS: NT Pro B Type Natriuretic Pept 105 pg/mL (19.9-100)
[2023-11-13 01:54] LABS: Influenza A QL RT-PCR Negative (Negative); Influenza B QL RT-PCR Negative (Negative); RSV RNA, RT-PCR Negative (Negative); SARS-CoV-2 RNA PCR Negative (Negative)
--- NOTE | 2023-11-13 02:15 | ED.GENADULT ---
HPI - General Adult General Chief complaint: Chest Pain Stated complaint: High BP, SOB, CP Time Seen by Provider: 11/13/23 00:37 History of Present Illness HPI narrative: patient is a 63-year-old female who presents emergency department with chief complaint of chest pain and hypertension patient reports that the she has been having some discomfort in her chest radiating down her left arm also reports been having pain in her neck and reports that although the headache with this as well patient reports she has had nausea patient reports prior history of a TIA and complex migraines in the past patient does report that she has had no prior cardiac history herself but does have a significant family history for cardiac disease. Related Data Home Medications Medication Instructions Recorded Confirmed aspirin 81 mg tablet,delayed 81 mg PO DAILY 07/14/20 08/28/23 release (Adult Low Dose Aspirin) calcium carbonate (Calcium 600) 600 mg PO DAILY 07/14/20 08/28/23 cetirizine 10 mg tablet 10 mg PO DAILY 07/14/20 08/28/23 cyclosporine 0.05 % eye drops in a 1 drp EACH EYE Q12H 07/14/20 08/28/23 dropperette (Restasis) ergocalciferol (vitamin D2) 1,250 1,250 mcg PO WEEKLY 07/14/20 08/28/23 mcg (50,000 unit) capsule fluticasone propionate 50 1 spray intranasal DAILY 07/14/20 08/28/23 mcg/actuation nasal spray,suspension (Allergy Relief (fluticasone)) biotin 10,000 mcg capsule 10,000 mcg PO DAILY 07/08/21 08/28/23 Allergies Allergy/AdvReac Type Severity Reaction Status Date / Time adhesive tape Allergy Mild RASH Verified 11/13/23 00:28 levofloxacin AdvReac Mild Nausea Verified 11/13/23 00:28 Sulfa (Sulfonamide AdvReac Mild Nausea and Verified 11/13/23 00:28 Antibiotics) Vomiting Review of Systems Review of Systems: A 10 system review of systems was completed on the patient and is negative except for what is stated in the HPI. Nursing and ancillary documentation was reviewed. [facility] Past Medical History Medical History Abnormal colonoscopy 11/24, polyps Repeat 11/29 Allergies Anal prolapse Anxiety Arthritis of knee, right Crushing injury of right little finger Headache Surgical History Surgical History H/O hysterectomy with oophorectomy 1999 History of surgical removal of skin lesion Family History Family History Father Hypertension Heart disease CHF Alcoholism Mother Cerebrovascular accident Heart disease Sibling Ovarian cancer Alcoholism Cancer Hypertension Heart disease Cerebrovascular accident Thyroid disorder Malignant neoplasm of prostate Sibling Acute myocardial infarction Grandparent Alcoholism Hypertension Heart disease Other Alcoholism Cancer Hypertension Heart disease Cerebrovascular accident Social History Social History Social History: never smoker Smoking status: Never smoker Second hand tobacco smoke exposure: No Alcohol intake: current Alcohol use details: rarely Substance use: never Substance use type: does not use Lack of Transportation: No Lack of Food: Never True Current Housing: I Have Housing Concerned About Future Housing: No Difficulty Paying Gas/Electric Bills: No Difficulty Paying for Meds: No Currently Unemployed: No Education: High School Diploma/GED Difficulty w/ Childcare or Family Care: No Living arrangements: with family Occupation/Education: retired Gender identity (if verbalized by the patient): Female Sexual Orientation (if Verbalized by the Patient): Straight or Heterosexual Spiritual care concerns: No Agree to blood products: Yes Exam Narrative: GENERAL: Well-appearing, well-nourished, and in no acute distress. HEAD:
[2023-11-13 02:29] LABS: Add Urine Microscopic? YES; Appearance Urine Clear (Clear); Bacteria Urine None Seen /hpf; Bilirubin Urine Negative (Negative); Blood Urine Negative (Negative); Color Urine Yellow (Yellow); Glucose Urine UA Negative (Negative); Ketones Urine Negative (Negative); Leukocyte Esterase Ur 2+ LEU/UL (Negative); Nitrate Urine Negative (Negative); Non Pathogenic Casts 0-2; Protein Urine Negative (Negative); RBC Urine 0-2 /hpf (0-2); Squamous Epithelial Cell Urine None Seen /hpf (Few); Urobilinogen Urine 0.2 mg/dL (<2.0)
[2023-11-13 04:05] VITALS: BP 139/81; PULSE 78; RESP 14; O2SAT 100
[2023-11-13 04:37] VITALS: BP 135/61; PULSE 82; RESP 16; O2SAT 97
[2023-11-13 04:37] LABS: Troponin I < 0.012 ng/mL (0.000-0.034)
[2023-11-13 06:07] VITALS: BP 146/79; PULSE 90; RESP 20; TEMP 36.7; O2SAT 98
== END 2023-11-13 06:09 | disposition home or self-care (01) ==
PROVIDERS: Emergency Provider Emergency Medicine; PCP Family Medicine Adolescent Medicine
DX: R07.89 Other chest pain (principal); Z20.822 Contact with and (suspected) exposure to COVID-19; F41.9 Anxiety disorder, unspecified; I10 Essential (primary) hypertension; Z90.710 Acquired absence of both cervix and uterus
CPT/HCPCS: 36415; 70450; 71045; 71275; 80053; 81001; 83690; 83880; 84145; 84484; 85025; 85610; 85730; 87086; 87637; 93005; 96374; 96375; 99284; A9270; J0780; J1200; Q9967

== ENCOUNTER 2023-12-20 08:09 | Outpatient (CLI) | payer BC, SELFPAY ==
--- NOTE | ~2023-12-20 | NM_ITS ---
EXAMINATION: NM stress w perf spect multi DATE: 12/20/2023 10:02 INDICATION: Mixed hyperlipidemia. Chest pain. TECHNIQUE: Rest images were obtained following intravenous administration of 10.6 mCi Tc99m tetrofosm in (Myoview). The patient performed an exercise activity. At peak exercise, 34 mCi Tc99m tetrofosmin (Myoview) was administered intravenously, and stress images were obtained. Data was reconstructed int o short axis and horizontal and vertical long axis SPECT images. Gated SPECT images were also obtaine d. COMPARISON: None. FINDINGS: There is normal left ventricular perfusion without definite evidence of reversible or fixed perfusion abnormality to suggest ischemia or infarction. There is normal left ventricular chamber size, wall motion and ejection fraction. Left ventricular ejection fraction measures 57%. IMPRESSION: 1. Normal myocardial perfusion at rest and during stress. 2. Left ventricular ejection fraction measuring 57%. Reviewed, dictated and finalized at location B.
--- NOTE | 2023-12-20 08:25 | EST_ITS ---
Patient Info Name: Sherri Mcnulty Age: 63 years : 1960 Gender: Female Ht: 65 in Wt: 168 lbs BSA: 1.89 m2 HR: 69 bpm BP: 154 / 84 mmHg Exam Date: 12/20/2023 9:06 AM Exam Location: Echo Lab Patient Status: Outpatient Admit Date: 12/20/2023 Staff Ordering Physician: Sirisha Bang APRN Attending Provider: Sirisha Bang APRN Exercise Technologist: Fela Parry [facility] Exercise Physician: Luis Fernando Centeno DO Exam Type: CA stress test treadmill w NM Study Info A nuclear stress test was performed. Summary 1. 1. Negative Noe exercise stress test for ischemic ST changes by ECG criteria. 2. 2. Poor functional capacity, achieving 5 METs of workload. 3. 3. Rapid HR response to exercise. 4. 4. Baseline hypertension. 5. 5. Appropriate HR recovery at 1 minute post exercise. 6. 6. Nuclear scan to follow and will be reported separately. Please correlate with it. 7. 7. Patient informed of the above results. Protocol: Noe Stress ECG Details Stage: REST Duration (min): 6 min : 8 sec Speed (mph): 0.0 Grade (%): 0 HR (bpm): 70 SBP (mmHg): 154 DBP (mmHg): 84 METS: --- Stage: REST Duration (min): 10 min : 9 sec Speed (mph): 0.0 Grade (%): 0 HR (bpm): 75 SBP (mmHg): 154 DBP (mmHg): 84 METS: --- Stage: STAGE 1 Duration (min): 1 min : 0 sec Speed (mph): 1.7 Grade (%): 10 HR (bpm): 111 SBP (mmHg): 154 DBP (mmHg): 84 METS: --- Stage: STAGE 1 Duration (min): 2 min : 0 sec Speed (mph): 1.7 Grade (%): 10 HR (bpm): 142 SBP (mmHg): 154 DBP (mmHg): 84 METS: --- Stage: STAGE 1 Duration (min): 3 min : 0 sec Speed (mph): 1.7 Grade (%): 10 HR (bpm): 151 SBP (mmHg): 154 DBP (mmHg): 84 METS: --- Stage: STAGE 2 Duration (min): 0 min : 20 sec Speed (mph): 2.5 Grade (%): 12 HR (bpm): 157 SBP (mmHg): 154 DBP (mmHg): 84 METS: --- Stage: RECOVERY Duration (min): 0 min : 39 sec Speed (mph): 0.0 Grade (%): 0 HR (bpm): 143 SBP (mmHg): 154 DBP (mmHg): 84 METS: --- Stage: RECOVERY Duration (min): 1 min : 39 sec Speed (mph): 0.0 Grade (%): 0 HR (bpm): 107 SBP (mmHg): 154 DBP (mmHg): 84 METS: --- Stage: RECOVERY Duration (min): 2 min : 39 sec Speed (mph): 0.0 Grade (%): 0 HR (bpm): 74 SBP (mmHg): 154 DBP (mmHg): 84 METS: --- Stage: RECOVERY Duration (min): 3 min : 7 sec Speed (mph): 0.0 Grade (%): 0 HR (bpm): 79 SBP (mmHg): 158 DBP (mmHg): 79 METS: --- Rest HR: 75 bpm Peak HR: 158 bpm Rest Sys BP: 154 mmHg Peak Sys BP: 158 mmHg Max Pred HR: 157 bpm % Max Pred HR: 101 % Target HR: 133 bpm Max RPP: 24,964 bpm*mmHg Maldonado Score: -6 Termination Reason: Reached target heart rate or workload Cardiac Symptoms: Shortness of breath Max ST Seg Deviation: -2 mm Total Time: 3 min : 21 sec Rest Manriquez BP: 84 mmHg Peak Manriquez BP: 79 mmHg Angina Score: None Total METS: 5.3 Resting ECG Sinus rhythm. Stress ECG No ST changes. Arrhythmias PVC's with exercise. Repo
== END 2023-12-20 08:10 | disposition home or self-care (01) ==
PROVIDERS: PCP Family Medicine Adolescent Medicine; Visit Provider Nurse Practitioner Family
DX: E78.2 Mixed hyperlipidemia (principal); R07.89 Other chest pain; I10 Essential (primary) hypertension
CPT/HCPCS: 78452; 93017; A9502

== ENCOUNTER 2023-12-26 08:50 | Outpatient (CLI) | payer BC, SELFPAY ==
--- NOTE | 2023-12-26 11:30 | NEURO_ITS ---
Impression: # Complains of nocturnal paresthesia of right more than left upper extremities. # Right moderate Carpal Tunnel Syndrome. # Left mild Carpal Tunnel Syndrome. # No ulnar neuropathy. # Needle/EMG exam mildly abnormal in right APB. Nerve Conduction Studies Anti Sensory Summary Table Stim Site NR Peak (ms) P-T Amp (?V) Site1 Site2 Delta-P (ms) Dist (cm) David (m/s) Left Median Anti Sensory (2-3nd Digit) Wrist 3.2 54.2 Wrist 2-3nd Digit 3.2 14.0 44 Wrist 3.4 47.3 Wrist 2-3nd Digit 3.2 14.0 44 Right Median Anti Sensory (2-3nd Digit) Wrist 4.4 45.0 Wrist 2-3nd Digit 4.4 14.0 32 Wrist 4.6 22.4 Wrist 2-3nd Digit 4.4 14.0 32 Left Radial Anti Sensory (Base 1st Digit) Wrist 2.5 23.8 Wrist Base 1st Digit 2.5 0.0 Right Radial Anti Sensory (Base 1st Digit) Wrist 2.1 26.0 Wrist Base 1st Digit 2.1 0.0 Left Ulnar Anti Sensory (5th Digit) Wrist 2.3 65.8 Wrist 5th Digit 2.3 14.0 61 Right Ulnar Anti Sensory (5th Digit) Wrist 2.5 39.3 Wrist 5th Digit 2.5 14.0 56 Motor Summary Table Stim Site NR Onset (ms) O-P Amp (mV) Site1 Site2 Delta-0 (ms) Dist (cm) David (m/s) Left Median Motor (Abd Poll Brev) Wrist 3.7 1.7 Elbow Wrist 4.6 25.0 54 Elbow 8.3 1.7 Right Median Motor (Abd Poll Brev) Wrist 4.8 1.9 Elbow Wrist 5.0 27.0 54 Elbow 9.8 1.7 Left Ulnar Motor (Abd Dig Minimi) Wrist 2.7 8.4 A Elbow Wrist 5.0 28.0 56 A Elbow 7.7 6.9 Right Ulnar Motor (Abd Dig Minimi) Wrist 2.7 9.6 A Elbow Wrist 4.9 28.0 57 A Elbow 7.6 5.6 F Wave Studies NR F-Lat (ms) L-R F-Lat (ms) Left Median (Mrkrs) (Abd Poll Brev) 28.93 0.25 Right Median (Mrkrs) (Abd Poll Brev) 29.18 0.25 Left Ulnar (Mrkrs) (Abd Dig Min) 28.08 0.58 Right Ulnar (Mrkrs) (Abd Dig Min) 27.50 0.58 EMG Side Muscle Nerve Root Ins Act Fibs Amp Dur Recrt Comment Right 1stDorInt Ulnar C8-T1 Nml Nml Nml Nml Nml Right Ext Indicis Radial (Post Int) C7-8 Nml Nml Nml Nml Nml Right Ext Digitorum Radial (Post Int) C7-8 Nml Nml Nml Nml Nml Right BrachioRad Radial C5-6 Nml Nml Nml Nml Nml Right PronatorTeres Median C6-7 Nml Nml Nml Nml Nml Right Abd Poll Brev Median C8-T1 Nml Nml Nml >12ms +1 Right ABD Dig Min Ulnar C8-T1 Nml Nml Nml Nml Nml Left 1stDorInt Ulnar C8-T1 Nml Nml Nml Nml Nml Left Ext Indicis Radial (Post Int) C7-8 Nml Nml Nml Nml Nml Left Ext Digitorum Radial (Post Int) C7-8 Nml Nml Nml Nml Nml Left BrachioRad Radial C5-6 Nml Nml Nml Nml Nml Left PronatorTeres Median C6-7 Nml Nml Nml Nml Nml Left Abd Poll Brev Median C8-T1 Nml Nml Nml Nml Nml Left ABD Dig Min Ulnar C8-T1 Nml Nml Nml Nml Nml MTDD
== END 2023-12-26 08:51 | disposition home or self-care (01) ==
LOC: ANHNEURO 08:52
PROVIDERS: PCP Family Medicine Adolescent Medicine; Visit Provider Nurse Practitioner Family
DX: G56.03 Carpal tunnel syndrome, bilateral upper limbs (principal)
CPT/HCPCS: 95886; 95911

== ENCOUNTER 2024-04-01 11:41 | Outpatient (CLI) | payer BC, SELFPAY ==
--- NOTE | ~2024-04-01 | MM_ITS ---
EXAMINATION: MM screening [facility] BI w jasson HISTORY: Screening TECHNIQUE: Craniocaudal and mediolateral oblique 3-D tomosynthesis images were obtained and synthetic 2-D images were generated. CAD analysis was submitted and interpreted. COMPARISON: 09/28/2021 and dating back to 01/18/2017 BREAST PARENCHYMAL COMPOSITION: The breasts are heterogeneously dense, which may obscure small masses . FINDINGS: Punctate calcifications detected bilaterally, stable and benign in appearance. Stable parenchymal pattern without suspicious microcalcifications, architectural distortion, discrete masses or significant asymmetry. IMPRESSION: 1. No mammographic evidence of malignancy. 2. Recommend routine screening mammography in one year. BI-RADS Category 2: Benign finding(s). Reviewed, dictated and finalized at location A. [employer] TEACHER
== END 2024-04-01 11:42 | disposition home or self-care (01) ==
LOC: MICIMG 11:43
PROVIDERS: PCP Family Medicine Adolescent Medicine; Visit Provider Obstetrics & Gynecology Gynecology
DX: Z12.31 Encounter for screening mammogram for malignant neoplasm of breast (principal)
CPT/HCPCS: 77063; 77067

== ENCOUNTER 2024-08-27 12:52 | Outpatient (CLI) | payer BC, SELFPAY ==
--- NOTE | ~2024-08-27 | DEXA_ITS ---
Bone Density Report Name: TAMARA MORALES Age: 64 Sex: Female Ethnicity: White Date of : 1960 Indication: postmenopausal; screening for osteoporosis; prior fracture; cancer; hysterectomy; Referring Provider: ALEJANDRO BARNES Study: Bone densitometry was performed. Exam Date: August 27, 2024 Accession number: [id number] Bone Density: Region BMD T-score Z-score Classification AP Spine(L1-L4) 1.000 -0.4 1.3 Normal Femoral Neck (Left) 0.767 -0.7 0.7 Normal Total Hip (Left) 0.953 0.1 1.3 Normal Femoral Neck (Right) 0.714 -1.2 0.3 Osteopenia Total Hip (Right) 0.898 -0.4 0.8 Normal Total Hip Mean 0.925 -0.2 1.1 Normal World Health Organization criteria for BMD impression classify patients as: Normal (T-score at or above -1.0), Osteopenia (T-score between -1.0 and -2.5), or Osteoporosis (T-score at or below -2.5). 10-year Fracture Risk(1): Major Osteoporotic Fracture 13% Hip Fracture 1.1% Reported Risk Factors: [place] (), Neck BMD=0.714, BMI=29.1, previous fracture (1) FRAX(R) Version 3.08. Fracture probability calculated for an untreated patient. Fracture probability may be lower if the patient has received treatment. Previous Exams: -- Region Exam Age BMD T-score BMD Change BMD Change Date g/cm2 vs Baseline vs Previous -- AP Spine (L1-L4) 08/27/2024 64 1.000 -0.4 -8.0%# -5.3%* 03/31/2020 59 1.056 0.1 -2.8%# 6.3%* 01/18/2017 56 0.993 -0.5 -8.6%# -3.1%* 05/09/2013 53 1.026 -0.2 -5.6%# 6.0%* 07/15/2009 49 0.968 -0.7 -11.0%# -11.0%# 12/29/2003 43 1.087 0.4 Total Hip(Left) 08/27/2024 64 0.953 0.1 -3.0%# -7.1%* 03/31/2020 59 1.026 0.7 4.4%# 13.9%* 01/18/2017 56 0.901 -0.3 -8.3%# -4.6%* 05/09/2013 53 0.944 0.0 -3.9%# 4.6%* 07/15/2009 49 0.903 -0.3 -8.1%# -8.1%# 12/29/2003 43 0.982 0.3 Total Hip(Right) 08/27/2024 64 0.898 -0.4 -8.5%# -9.0%* 03/31/2020 59 0.987 0.4 0.6%# 21.6%* 01/18/2017 56 0.811 -1.1 -17.3%# -13.1%* 05/09/2013 53 0.934 -0.1 -4.9%# 10.7%* 07/15/2009 49 0.844 -0.8 -14.0%# -14.0%# 12/29/2003 43 0.981 0.3 -- *Denotes significance at 95% confidence level, LSC for AP Spine = 0.022 g/cm2, LSC for Total Hip = 0.027 g/cm2 # Denotes dissimilar scan types or analysis methods Clinical Information Provided by Patient: Has had a low trauma fracture Has used the following medications: Vitamin D, Calcium Has the following medical conditions: Cancer, Hysterectomy, Squamus Cell CA Patient maximum height was 65.5 Menopause Age: 42 No regular weight bearing exercise Drinks caffeinated beverages Onset of menses at age 14 Number of children 2 Impression: The patient has low bone mass, based on the Right Femoral Neck T-score. The patient has an estimated ten-year risk of hip fracture of 1.1% and an estimated ten-year risk of major fracture of 13%, based on the WHO FRAX algorithm. The patient has risk factors, including: previous fracture. The BMD for the AP Spine (L1-L4) decreased, changing by -5.3% since the last DXA exam. The BMD for the Total Hip(Left) decreased, changing by -7.1% since the last DXA exam. The BMD for the Total Hip(Right) decreased, changing by -9.0% since the last DXA exam. Discussion: BONE DENSITY IS LOW AT ONE OR MORE SKELETAL SITES. This patient's lowest T-score is low at one or more skeletal sites. It meets the World Health Organization's (WHO) criteria for ?low bone mass? (T-score between -1.0 and -2.5). The patient's 10-year risk of fracture as calculated by FRAX is less than the threshold where pharmacological therapy is recommended by the National Osteoporosis Foundation (NOF). However, all treatment decisions require clinical judgment and consideration of individual patient factors, including patient preferences, comorbidities, previous drug use, risk factors not captured in the FRAX model (e.g., frailty, falls, vitamin D deficiency, increased bone turnover, interval significant decline in bone density) and possible under or overestimation of fracture risk by FRAX. The patient should follow a healthful lifestyle (good nutrition with adequate calcium and vitamin D, and appropriate weight-bearing exercise). Follow-Up: Consider repeating this study in 2 years to reassess this patient's status, or sooner if there is some new clinical indication. Reported by: ROXANN on 08/28/2024 8:26:00 AM. Reviewed, dictated and finalized at location A.
== END 2024-08-27 12:53 | disposition home or self-care (01) ==
LOC: MICIMG 12:53
PROVIDERS: PCP Family Medicine Adolescent Medicine; Visit Provider Obstetrics & Gynecology Gynecology
DX: Z12.31 Encounter for screening mammogram for malignant neoplasm of breast (principal); M85.851 Other specified disorders of bone density and structure, right thigh
CPT/HCPCS: 77080